=== PATIENT | male | born 1980 | race Asian ===

== ENCOUNTER 2017-04-08 16:48 | Emergency (ER) | payer BC ==
[~2017-04-08] VITALS: Ht 162.6 cm; Wt 59.0 kg
[2017-04-08 17:19] VITALS: BP 146/89
[2017-04-08 17:36] LABS: BILIRUBIN,URINE NEGATIVE (NEG); GLUCOSE,URINE NEGATIVE (NEG); NITRITE,URINE NEGATIVE (NEG); PROTEIN,URINE NEGATIVE (NEG-TRACE); UROBILINOGEN,URINE 0.2 mg/dL (0.2 mg/dL)
--- NOTE | 2017-04-08 17:42 | PHYS DOC ---
Past Medical History Past Medical History: No Pertinent History Past Surgical History: No Surgical History Alcohol Use: Occasionally Drug Use: None Adult General Chief Complaint Chief Complaint: PAIN ON URINATION [facility] HPI Patient is a 36 year old male presents to the emergency department with a 2 week history of burning with urination. Patient states he has white penile discharge. Patient denies sexual activity. Patient patient then states he has a picture of an area that is been very painful. Patient is a picture of his rectal area but has redness and tenderness. Patient states he has increase pain with coughing to the rectal area. He states he has had pain with stools. Denies constipation. Review of Systems Review of Systems Constitutional: Denies fever or chills [] Eyes: Denies change in visual acuity, redness, or eye pain [] HENT: Denies nasal congestion or sore throat [] Respiratory: Denies cough or shortness of breath [] Cardiovascular: No additional information not addressed in HPI [] GI: Denies abdominal pain, nausea, vomiting, bloody stools or diarrhea [] : Denies dysuria or hematuria [] Musculoskeletal: Denies back pain or joint pain [] Integument: Denies rash or skin lesions [] Neurologic: Denies headache, focal weakness or sensory changes [] Endocrine: Denies polyuria or polydipsia [] Current Medications Current Medications Current Medications Medications (Trade) Dose Ordered Sig/Virgil Start Time Stop Time Status Last Admin Dose Admin Iohexol (Omnipaque 300 Mg/ml) 75 ml 1X ONCE 04/08/17 19:15 04/08/17 19:16 DC 04/08/17 19:17 75 ML Allergies Allergies Allergies Coded Allergies Type Severity Reaction Last Updated Verified No Known Drug Allergies 04/08/17 No Physical Exam Physical Exam Constitutional: Well developed, well nourished, no acute distress, non-toxic appearance. [] HENT: Normocephalic, atraumatic, bilateral external ears normal, oropharynx moist, no oral exudates, nose normal. [] Eyes: PERRLA, EOMI, conjunctiva normal, no discharge. [] Neck: Normal range of motion, no tenderness, supple, no stridor. [] Cardiovascular:Heart rate regular rhythm, no murmur [] Lungs & Thorax: Bilateral breath sounds clear to auscultation [] Skin: Warm, dry, no erythema, no rash. [] Back: No tenderness Extremities: No tenderness, no cyanosis, no clubbing, ROM intact, no edema. [] Neurologic: Alert and oriented X 3, normal motor function, normal sensory function, no focal deficits noted. [] Psychologic: Affect normal, judgement normal, mood normal. [] Current Patient Data Vital Signs Vital Signs Date Time Temp Pulse Resp B/P (MAP) Pulse Ox O2 Delivery O2 Flow Rate FiO2 04/08/17 17:19 98.2 67 18 98 Room Air 98.2 Lab Values Laboratory Tests Test 04/08/17 17:15 04/08/17 18:28 04/08/17 18:50 Urine Collection Type Unknown Urine Color Yellow Urine Clarity Clear Urine pH 6.0 Urine Specific [place] 1.020 Urine Protein Negative mg/dL (NEG-TRACE) Urine Glucose (UA) Negative mg/dL (NEG) Urine Ketones (Stick) Negative mg/dL (NEG) Urine Blood Moderate (NEG) Urine Nitrite Negative (NEG) Urine Bilirubin Negative (NEG) Urine Urobilinogen Dipstick 0.2 mg/dL (0.2 mg/dL) Urine Leukocyte Esterase Negative (NEG) Urine RBC 3-5 /HPF (0-2) Urine WBC 0 /HPF (0-4) Urine Bacteria 0 /HPF (0-FEW) Urine Mucus Mod /LPF Urine Sperm Present /HPF White Blood Count 8.5 x10^3/uL (4.0-11.0) Red Blood Count 5.66 x10^6/uL (4.30-5.70) Hemoglobin 16.5 g/dL (13.0-17.5) Hematocrit 49.3 % (39.0-53.0) Mean Corpuscular Volume 87 fL (79-100) Mean Corpuscular Hemoglobin 29 pg (25-35) Mean Corpuscular Hemoglobin Concent 34 g/dL (31-37) Red Cell Distribution Width 15.3 % (11.5-14.5) H Platelet Count 246 x10^3/uL (140-400) Neutrophils (%) (Auto) 72 % (31-73) Lymphocytes (%) (Auto) 16 % (24-48) L Monocytes (%) (Auto) 8 % (0-9) Eosinophils (%) (Auto) 4 % (0-3) H Basophils (%) (Auto) 0 % (0-3) Neutrophils # (Auto) 6.1 x10^3uL (1.8-7.7) Lymphocytes # (Auto) 1.4 x10^3/uL (1.0-4.8) Monocytes # (Auto) 0.7 x10^3/uL (0.0-1.1) Eosinophils # (Auto) 0.4 x10^3/uL (0.0-0.7) Basophils # (Auto) 0.0 x10^3/uL (0.0-0.2) Sodium Level 139 mmol/L (136-145) Potassium Level 3.8 mmol/L (3.5-5.1) Chloride Level 103 mmol/L (98-107) Carbon Dioxide Level 29 mmol/L (21-32) Anion Gap 7 (6-14) Blood Urea Nitrogen 11 mg/dL (8-26) Creatinine 1.2 mg/dL (0.7-1.3) Estimated GFR (Cockcroft-Gault) 68.9 BUN/Creatinine Ratio 9 (6-20) Glucose Level 90 mg/dL (70-99) Calcium Level 8.9 mg/dL (8.5-10.1) Total Bilirubin 0.7 mg/dL (0.2-1.0) Aspartate Amino Transferase (AST) 18 U/L (15-37) Alanine Aminotransferase (ALT) 25 U/L (16-63) Alkaline Phosphatase 83 U/L (46-116) Total Protein 8.0 g/dL (6.4-8.2) Albumin 3.8 g/dL (3.4-5.0) Albumin/Globulin Ratio 0.9 (1.0-1.7) L Stool Occult Blood Negative (NEG) Laboratory Tests 04/08/17 18:28 Laboratory Tests 04/08/17 18:28 EKG EKG [] Radiology/Procedures Radiology/Procedures [] Course & Med Decision Making Course & Med Decision Making Pertinent Labs and Imaging studies reviewed. (See chart for details) After contacting the information officer line due to language barrier patient with complaint of rectal bleeding for the last 3 weeks. Patient states that he has had light headed and dizziness. He states he has not been able to have a regular BM that it is bloody. Patient denies abdominal pain however has had nausea and vomiting. 1855 Rectal exam completed with patient noted to have large hemorrhoid positive blood noted with rectal exam. CT scan was negative. CBC chemistries and occult blood negative. Patient will be discharged home with recommendations for warm sitz baths 4-5 times a day for 20 minutes at a time. Also recommended using Tucks medicated pads. Also recommended him to follow up with hemorrhoid clinic. Patient was provided with signs and symptoms to return back to emergency department. Patient will be discharged home in stable condition. [] Dragon Disclaimer Dragon Disclaimer This electronic medical record was generated, in whole or in part, using a voice recognition dictation system. Departure Departure Impression: Primary Impression: Hemorrhoids Disposition: HOME, SELF-CARE Condition: STABLE Referrals: NO PCP (PCP) Patient Instructions: Hemorrhoids, [id number] Additional Instructions: Activity as tolerated. Warm sitz baths 4-5 times a day 20 minutes at a time. You may use Tucks medicated pads to help with a hemorrhoids. Stool softeners may also help decrease some of the pain and discomfort while having bowel movements. Follow-up with a hemorrhoid clinic in 5-7 days Return back to emergency prior signs symptoms of become worse. BETTY PARK [employer] April 08, 2017 17:42
[2017-04-08 17:57] LABS: BACTERIA,URINE 0 /HPF (0-FEW); SPERM,URINE PRESENT /HPF; WBC,URINE 0 /HPF (0-4)
[2017-04-08 18:38] LABS: BASO % 0 % (0-3); EOS % 4 % (0-3); HEMATOCRIT 49.3 % (39.0-53.0); HEMOGLOBIN 16.5 g/dL (13.0-17.5); LYMPH # 1.4 x10^3/uL (1.0-4.8); LYMPH % 16 % (24-48); MEAN CORPUSCULAR HEMOGLOBIN 29 pg (25-35); MEAN CORPUSCULAR HGB CONC 34 g/dL (31-37); MEAN CORPUSCULAR VOLUME 87 fL (79-100); MONO % 8 % (0-9); NEUT % 72 % (31-73); PLATELET COUNT 246 x10^3/uL (140-400); RED BLOOD COUNT 5.66 x10^6/uL (4.30-5.70); RED CELL DISTRIBUTION WIDTH 15.3 % (11.5-14.5); WHITE BLOOD COUNT 8.5 x10^3/uL (4.0-11.0)
[2017-04-08 18:50] LABS: CALCIUM 8.9 mg/dL (8.5-10.1); CREATININE 1.2 mg/dL (0.7-1.3); GFR 68.9; POTASSIUM 3.8 mmol/L (3.5-5.1)
[2017-04-08 18:55] LABS: ALBUMIN 3.8 g/dL (3.4-5.0); ALBUMIN/GLOBULIN RATIO 0.9 (1.0-1.7); TOTAL BILIRUBIN 0.7 mg/dL (0.2-1.0)
[2017-04-08 19:04] LABS: NEG OBC FOB NEG; POS OBC FOB POS
[2017-04-08] MEDS ORDERED: IOHEXOL 300 MG/ML 75 ML VIAL IV ONE (19:15)
--- NOTE | 2017-04-08 19:43 | RAD ---
PROCEDURE CT abdomen and pelvis with contrast HISTORY Rectal bleeding TECHNIQUE Exposure: One or more of the following individualized dose reduction techniques were utilized for this exam: 1. Automated exposure control. 2. Adjustment of the mA and/or kV according to patient size. 3. Use of iterative reconstruction technique. Helical CT imaging of the abdomen and pelvis with 75 milliliters Omnipaque 300 intravenous contrast COMPARISON No prior FINDINGS Abdomen: L4-5 disc bulge may contribute to spinal canal narrowing. Liver, gallbladder, pancreas, adrenals, kidneys and spleen are unremarkable. There is collapse of the descending and sigmoid colon without discrete inflammation. No bowel obstruction. The appendix is negative. No abdominal fluid or adenopathy. Vessels are unremarkable. Lung bases unremarkable. Pelvis: The rectum and sigmoid colon are collapsed without discrete wall thickening or inflammation evident. No pelvic fluid. Bladder, bones unremarkable. Central prostate hypodensity perhaps from a trans urethral prostatectomy or secondarily a congenital cyst. IMPRESSION No acute process. The appendix is negative. Electronically signed by: Renato Hall MD (April 08, 2017 19:41:31)
== END 2017-04-08 20:12 | disposition home or self-care (01) ==
LOC: ER 16:48
DX: K64.9 Unspecified hemorrhoids (principal)
CPT/HCPCS: 36415; 74177; 80053; 81001; 82274; 85027; 87491; 87591; 99285; Q9967